=== PATIENT | female | born 1960 ===

== ENCOUNTER 2021-04-21 10:26 | Day surgery (SDC) | payer MEDICAID ==
[~2021-04-21] VITALS: Ht 162.6 cm; Wt 94.9 kg
[2021-04-21] VITALS (7 sets, daily range): BP systolic 109–129; BP diastolic 61–85; PULSE 63–76; TEMP 97.3–98.7
[2021-04-21] MEDS ORDERED: MIDAMOR 5MG TAB5 MG PO (11:36)
[2021-04-21] MEDS ORDERED: PROTONIX 40MG T40 MG PO (11:37)
[2021-04-21] MEDS ORDERED: CELEXA 20MG20 MG/TAB PO (11:37)
[2021-04-21] MEDS ORDERED: PYRIDIUM 100MG100 MG PO (11:38)
[2021-04-21] MEDS ORDERED: ROZEREM 8MG TABL8 MG PO (11:39)
[2021-04-21] MEDS ORDERED: VESICARE10 MG PO (11:39)
[2021-04-21] MEDS ORDERED: ULTRAM 50MG TAB50 MG PO (11:40)
--- NOTE | 2021-04-21 13:35 | NUR ---
PT TO BAY 5 FROM PACU. RECEIVED REPORT FROM WEI HUMMEL. VS OBTAINED. REORIENTED PT TO ROOM AND CALL LIGHT. PT TOLERATING PO WATER WITHOUT DIFFICULTY. WILL CONTINUE TO MONITOR PT.
--- NOTE | 2021-04-21 13:50 | NUR ---
PT CONTINUES TO TOLERATE WATER. DENIES ANY NEEDS AT THIS TIME. WILL CONTINUE TO MONITOR PT.
--- NOTE | 2021-04-21 14:05 | NUR ---
PT RESTING COMFORTABLY. CONTINUES TO DENY ANY NEEDS AT THIS TIME. WILL CONTINUE TO MONITOR PT.
--- NOTE | 2021-04-21 14:35 | NUR ---
PT TOLERATING MUFFIN AND WATER. STATES SHE IS STARTING TO GET UNCOMFORTABLE, BUT IS TOLERABLE AT THIS TIME. WILL CONTINUE TO MONITOR PT.
--- NOTE | 2021-04-21 15:05 | NUR ---
PT REQUESTING PAIN MEDICATION. PT UP TO RESTROOM AND VOIDED WITHOUT DIFFICULTY.
--- NOTE | 2021-04-21 15:10 | NUR ---
CALL TO DR TIERNEY. RECEIVED ORDERS FOR PAIN MEDICATION HYDROCODONE 5MG/325MG AND LEVSIN 0.[address] TIERNEY STATED HE WOULD BE ROUNDING WITHIN THE HOUR TO REEVALUATE THE PT.
--- NOTE | 2021-04-21 15:15 | NUR ---
PT RATES PAIN 6/10. 1 HYDROCODONE GIVEN. LEVSIN GIVEN SL. WILL CONTINUE TO MONITOR PT.
--- NOTE | 2021-04-21 15:55 | NUR ---
DR TIERNEY AT BEDSIDE. PT OK TO DC TO HOME.
--- NOTE | 2021-04-21 16:05 | NUR ---
IV DC'D. PT TOLERATED WELL.
--- NOTE | 2021-04-21 16:15 | NUR ---
DISCHARGE EDUCATION COMPLETED WITH PT AND HER FAMILY. THEY VERBALIZED UNDERSTANDING OF HOME AND FOLLOW UP CARE. ALL QUESTIONS ANSWERED. DISCHARGE PAPERWORK GIVEN TO PT.
--- NOTE | 2021-04-21 16:35 | NUR ---
PT OFF UNIT PER WHEELCHAIR. PT DC TO HOME WITH PARENTS PER PERSONAL VEHICLE.
== END 2021-04-21 16:35 | disposition home or self-care (01) ==
LOC: SDCO 10:26
DX: N13.30 Unspecified hydronephrosis (principal); N32.81 Overactive bladder; N13.5 Crossing vessel and stricture of ureter without hydronephrosis; K21.9 Gastro-esophageal reflux disease without esophagitis; Z92.21 Personal history of antineoplastic chemotherapy; Z92.3 Personal history of irradiation; Z85.43 Personal history of malignant neoplasm of ovary; Z85.41 Personal history of malignant neoplasm of cervix uteri
CPT/HCPCS: C1769; C2617; J0330; J0690; J1100; J2405; J2704; J3010; J7120; Q9967